=== PATIENT | female | born 1995 | race Asian ===

== ENCOUNTER 2024-11-20 16:33 | Inpatient (IN) | payer OTHER, SELFPAY ==
[2024-11-20] VITALS (14 sets, daily range): BP systolic 121–133; BP diastolic 87–100; PULSE 76–115; RESP 16–20; TEMP 36.3; O2SAT 96–100; BMI 38.4; BMI 39.1
--- NOTE | 2024-11-20 16:52 | ED_ITS ---
HPI - General Adult General Time Seen by Provider: 16:52 <Neelima Hernandez MD - Last Filed: 11/21/24 13:03> Date Seen: 11/20/24 <Neelima Hernandez MD - Last Filed: 11/21/24 13:03> Chief complaint: Back Injury/Pain <Neelima Hernandez MD - Last Filed: 11/21/24 13:03> Stated complaint: Lower back pain and dizziness <Neelima Hernandez MD - Last Filed: 11/21/24 13:03> Time Seen by Provider: 11/20/24 16:35 <Neelima Hernandez MD - Last Filed: 11/21/24 13:03> Source: patient and RN notes reviewed <Neelima Hernandez MD - Last Filed: 11/21/24 13:03> Mode of arrival: ambulatory <Neelima Hernandez MD - Last Filed: 11/21/24 13:03> Limitations: no limitations <Neelima Hernandez MD - Last Filed: 11/21/24 13:03> History of Present Illness HPI narrative: This 29-year-old female is coming in with lower abdominal pain and discomfort, somewhat around her periumbilical area as well. Wednesday through Wednesday of last week she had her menstrual cycle, she usually will have a lot of cramps and that is not atypical but the pain has continued. She does track her menstrual cycle, since coming off [employer], her cycles are usually about every 28 days and she will have her menstrual flow for about 3 days of this. She has felt hot and cold. She notes she has felt sweaty from her waist down at times. She normally will have stool production a couple times a day but it really is only went once today but denies constipation. She certainly is not had any diarrhea. She did eat a [employer] peanut butter cup earlier today around 10:00 a.m. but overall her appetite is diminished. She had some nausea today. She has tried Tylenol, ibuprofen and even tried some Midol. She has not had any prior abdominal surgery. She is noting urinary frequency without dysuria or hematuria, this is new for her. No history UTIs. She notes that right now she is feeling pain shooting into her rectum. She is not aware of any family history such as kidney stones or appendicitis. She herself has never had any kidney stones. No vaginal discharge. <Neelima Hernandez MD - Last Filed: 11/21/24 13:03> Related Data Home medications: Home Medications ?Medication ?Instructions ?Recorded ?Confirmed naltrexone 8 mg-bupropion 90 mg 1 tab PO BID 11/20/24 11/20/24 tablet,extended release (Contrave) <Neelima Hernandez MD - Last Filed: 11/21/24 13:03> Allergies/adverse reactions: Allergies Allergy/AdvReac Type Severity Reaction Status Date / Time No Known Drug Allergies Allergy Verified 11/20/24 16:49 <Neelima Hernandez MD - Last Filed: 11/21/24 13:03> Review of Systems Status of ROS: Reports: 6 or more systems reviewed and unremarkable except as noted in History and below <Neelima Hernandez MD - Last Filed: 13:03> [facility] Social History: Social History (Updated 11/20/24 @ 22:50 by Luciana Agudelo MD) Narrative: Works in a dental office What is your current living situation?: I presently have a place to live Problems where you live: no known problems Problems where you live details: none In the past 12 months, utilities in danger of being shut off: no In past 12 months, lack of transportation kept you from medical appts, meetings, work, or getting things needed for daily living: no In the past 12 mos, have been you worried that your food would run out before you had money to buy more?: never true In the past 12 mos, the food you bought just didn't last and you didn't have money to buy more?: never true Smoking Status: Never smoker How often do you have a drink containing alcohol: 2-3 times a week Alcohol type: beer and hard liquor Alcohol type details: tequila How many standard drinks containing alcohol do you have on a typical day: 1 or 2 How often do you have six or more drinks on one occasion: Less than monthly AUDIT-C Alcohol total score: 4 Non-prescribed substance use: marijuana (any form) Non-prescribed substance use details: 2/week Caffeine: Yes (soda, coffee) Are you now , , , , never or living with a partner: Social isolation score (0-1 are the most socially isolated patients): 1 How often does anyone, including family, friends and others, physically hurt you : never How often does anyone, including family, friends and others, insult or talk down to you: rarely How often does anyone, including family, friends and others, threaten you with harm: never How often does anyone, including family, friends and others, scream or curse at you: never service: No Health Related Social Needs: Other personal risk factors, not elsewhere classified (Z91.89) <Neelima Hernandez MD - Last Filed: 11/21/24 13:03> Exam Const: Vital Signs, click to edit/add: Vital Signs - 24 hr 11/20/24 16:41 11/20/24 17:37 11/20/24 17:40 Temperature 97.4 F L Pulse Rate 93 Pulse Rate [Pulse Oximeter] 106 H Respiratory Rate 20 16 Blood Pressure 127/88 Blood Pressure [Ri ght Upper Arm] 129/87 Pulse Oximetry 98 97 97 Oxygen Delivery Me thod Room Air Room Air 11/20/24 18:36 11/20/24 18:45 11/20/24 19:00 Temperature Pulse Rate 76 79 76 Pulse Rate [Pulse Oximeter] Respiratory Rate Blood Pressure Blood Pressure [Ri ght Upper Arm] Pulse Oximetry 96 97 98 Oxygen Delivery Nj thod 11/20/24 19:15 11/20/24 20:04 11/20/24 20:15 Temperature Pulse Rate 95 97 90 Pulse Rate [Pulse Oximeter] Respiratory Rate Blood Pressure Blood Pressure [Ri ght Upper Arm] Pulse Oximetry 100 97 98 Oxygen Delivery Me thod 11/20/24 20:28 11/20/24 20:29 11/20/24 20:30 Temperature Pulse Rate 93 92 88 Pulse Rate [Pulse Oximeter] Respiratory Rate 16 Blood Pressure 121/87 132/100 H Blood Pressure [Ri ght Upper Arm] Pulse Oximetry 98 98 96 Oxygen Delivery Me thod Room Air 11/20/24 20:31 Temperature Pulse Rate Pulse Rate [Pulse Oximeter] Respiratory Rate Blood Pressure 121/87 Blood Pressure [Ri ght Upper Arm] Pulse Oximetry Oxygen Delivery Me thod This 29-year-old female is seen in exam room for, she is alert, interactive, no apparent distress. Sclera clear, conjugate gaze, smiling and very pleasant. If speak in complete sentences, voice normal. Lungs clear come good air entry, no wheezing crackles. CV regular rate and rhythm, no murmur, normal S1-S2, no S3- S4. She has some mild inferior periumbilical pain going down into the suprapubic area generally. No rebound or guarding, no organomegaly but body habitus does preclude good examination. Bowel sounds are faint and scares but do not feel bloating of her abdomen. Skin visualized without any rash, no lower extremity edema. Pelvic exam deferred at this point. <Neelima Hernandez MD - Last Filed: 11/21/24 13:03> Vital Signs, click to edit/add: Vital Signs - 24 hr 11/20/24 16:41 11/20/24 17:37 11/20/24 17:40 Temperature 97.4 F L Pulse Rate 93 Pulse Rate [Pulse Oximeter] 106 H Respiratory Rate 20 16 Blood Pressure 127/88 Blood Pressure [Ri ght Upper Arm] 129/87 Pulse Oximetry 98 97 97 Oxygen Delivery Me thod Room Air Room Air 11/20/24 18:36 11/20/24 18:45 11/20/24 19:00 Temperature Pulse Rate 76 79 76 Pulse Rate [Pulse Oximeter] Respiratory Rate Blood Pressure Blood Pressure [Ri ght Upper Arm] Pulse Oximetry 96 97 98 Oxygen Delivery Me thod 11/20/24 19:15 11/20/24 20:04 11/20/24 20:15 Temperature Pulse Rate 95 97 90 Pulse Rate [Pulse Oximeter] Respiratory Rate Blood Pressure Blood Pressure [Ri ght Upper Arm] Pulse Oximetry 100 97 98 Oxygen Delivery Me thod 11/20/24 20:28 11/20/24 20:29 11/20/24 20:30 Temperature Pulse Rate 93 92 88 Pulse Rate [Pulse Oximeter] Respiratory Rate 16 Blood Pressure 121/87 132/100 H Blood Pressure [Ri ght Upper Arm] Pulse Oximetry 98 98 96 Oxygen Delivery Me thod Room Air 11/20/24 20:31 Temperature Pulse Rate Pulse Rate [Pulse Oximeter] Respiratory Rate Blood Pressure 121/87 Blood Pressure [Ri ght Upper Arm] Pulse Oximetry Oxygen Delivery Me thod <Betty Jay MD - Last Filed: 11/21/24 23:59> Documenting provider has reviewed patient's vital signs: yes <Neelima Hernandez MD - Last Filed: 11/21/24 13:03> Course Course ED Course: Differential is broad and could be gastrointestinal such as constipation, other bowel etiologies. Could be even appendicitis, possible urinary with infection and kidney stones not ruled out. Clinically she does not seem like she has a surgical abdomen but will do CT imaging to rule this out. Will consider female your genital etiologies as well. May need to consider ultrasound if there is anything concerning on the CT. Will confirm negative test, if test is positive certainly could be something along the lines of ectopic . Will give her Toradol and Zofran given that she just had a menstrual cycle that was normal for her. Makes this much less likely to be anything related to . Nursing staff did do an EKG on arrival as she was complaining of feeling lightheaded with her symptoms. The EKG is reassuring. <Neelima Hernandez MD - Last Filed: 11/21/24 13:03> Reevaluation(s) Time of Reevaluation #1: 18:59 <Neelima Hernandez MD - Last Filed: 11/21/24 13:03> Reevaluation #1: Reviewed with patient her CT finding of possible hydrosalpinx coming off the left ovary. She does not believe she has ever had a sexually transmitted infection and is not outwardly symptomatic at this time. Will have her collect a dirty urine for GC and chlamydia testing. Pelvic ultrasound has been ordered. She is feeling better after Toradol and Zofran. <Neelima Hernandez MD - Last Filed: 11/21/24 13:03> Additional Reevaluation(s): Ultrasound report added to this note next day. I understand patient was admitted by Dr. Agudelo. Care was turned over to ED partner on my leaving yesterday. <Neelima Hernandez MD - Last Filed: 11/21/24 13:03> Consultations Consultation #1: Did update OB Gyne on-call Dr. Agudelo. Tubo-ovarian abscess is in the differential as well. Reviewed with her that this patient really clinically does not have an acute surgical abdomen on presentation but white blood count an C reactive protein are elevated. Will await the ultrasound report. We are also going to have her collect a dirty UA to confirm negative STD testing with chlamydia and gonorrhea. <Neelima Hernanedz MD - Last Filed: 11/21/24 13:03> Time: 19:07 <Neelima Hernandez MD - Last Filed: 11/21/24 13:03> Consultation #2: Update: Dr. Jay- ultrasound findings reviewed. Discussed with Dr. Longo, will admit for IV antibiotics and continued management per her recommendation. Starting Rocephin, metronidazole and doxycycline. <Betty Jay MD - Last Filed: 11/21/24 23:59> Vital Signs Vital signs: Initial Vital Signs Temperature 97.4 F L 11/20/24 16:41 Temperature Source Temporal Artery Scan 11/20/24 16:41 Pulse Rate 106 H 11/20/24 16:41 Pulse Rhythm Irregular 11/20/24 16:41 Respiratory Rate 20 11/20/24 16:41 Blood Pressure 129/87 11/20/24 16:41 Blood Pressure Mean 101 11/20/24 16:41 Blood Pressure Position Sitting 11/20/24 16:41 Pulse Oximetry 98 11/20/24 16:41 Oxygen Delivery Method Room Air 11/20/24 16:41 Vital Signs Temperature 97.4 F L 11/20/24 16:41 Pulse Rate 106 H 11/20/24 16:41 Respiratory Rate 20 11/20/24 16:41 Blood Pressure 129/87 11/20/24 16:41 Pulse Oximetry 98 11/20/24 16:41 Oxygen Delivery Method Room Air 11/20/24 16:41 Temperature 98.2 F 11/21/24 15:00 Pulse Rate 91 11/21/24 21:12 Respiratory Rate 16 11/21/24 21:12 Blood Pressure 138/99 H 11/21/24 21:12 Pulse Oximetry 99 11/21/24 21:12 Oxygen Delivery Method Room Air 11/21/24 21:12 <Neelima Hernandez MD - Last Filed: 11/21/24 13:03> Initial Vital Signs Temperature 97.4 F L 11/20/24 16:41 Temperature Source Temporal Artery Scan 11/20/24 16:41 Pulse Rate 106 H 11/20/24 16:41 Pulse Rhythm Irregular 11/20/24 16:41 Respiratory Rate 20 11/20/24 16:41 Blood Pressure 129/87 11/20/24 16:41 Blood Pressure Mean 101 11/20/24 16:41 Blood Pressure Position Sitting 11/20/24 16:41 Pulse Oximetry 98 11/20/24 16:41 Oxygen Delivery Method Room Air 11/20/24 16:41 Vital Signs Temperature 97.4 F L 11/20/24 16:41 Pulse Rate 106 H 11/20/24 16:41 Respiratory Rate 20 11/20/24 16:41 Blood Pressure 129/87 11/20/24 16:41 Pulse Oximetry 98 11/20/24 16:41 Oxygen Delivery Method Room Air 11/20/24 16:41 Temperature 98.2 F 11/21/24 15:00 Pulse Rate 91 11/21/24 21:12 Respiratory Rate 16 11/21/24 21:12 Blood Pressure 138/99 H 11/21/24 21:12 Pulse Oximetry 99 11/21/24 21:12 Oxygen Delivery Method Room Air 11/21/24 21:12 <Betty Jay MD - Last Filed: 11/21/24 23:59> Medications Administered Medications: Generic Name Dose Route Start Last Admin Trade Name Freq PRN Reason Stop Dose Admin Acetaminophen 1,000 mg 11/20/24 21:23 11/21/24 13:30 Acetaminophen 500 Mg Tablet PO 1,000 mg Q6H PRN Administration Ceftriaxone Sodium 1 gm/ 100 mls @ 200 mls/hr 11/20/24 21:30 11/21/24 23:19 Sodium Chloride IVPB 200 mls/hr Q24H DOMONIQUE Administration Metronidazole 500 mg in 100 mls @ 100 mls/hr 11/20/24 21:25 11/21/24 22:38 Metronidazole IVPB Infused Q8H DOMONIQUE Infusion Doxycycline Hyclate 100 mg/ 100 mls @ 100 mls/hr 11/20/24 21:30 11/21/24 22:21 Sodium Chloride IVPB 200 mls/hr Q12H DOMONIQUE Administration Ketorolac Tromethamine 15 mg 11/20/24 21:23 11/21/24 13:31 Ketorolac 15 Mg/Ml Inj IVP 15 mg Q6H PRN Administration Non-Formulary Medication 1 tab 11/21/24 09:00 11/21/24 22:08 Naltrexone-Bupropion [Contrave] PO 1 tab BID DOMONIQUE Administration Ondansetron HCl 4 mg 11/20/24 21:23 11/21/24 21:17 Ondansetron 2 Mg/Ml Inj IVP 4 mg Q4H PRN Administration Nausea Sodium Chloride 250 ml 11/20/24 22:04 11/21/24 10:00 0.9 % Sodium Chloride 250 Ml IV 250 ml Q24H PRN Administration iv abx Sodium Chloride 5 ml 11/20/24 23:44 11/21/24 05:35 Sodium Chloride 0.9 % (Flush) 10 Ml Syringe IVF 5 ml .FLUSH PRN Administration Sodium Chloride 5 ml 11/21/24 09:00 11/21/24 21:18 Sodium Chloride 0.9 % (Flush) 10 Ml Syringe IVF 5 ml BID DOMONIQUE Administration Sodium Chloride 250 ml 11/21/24 09:45 11/21/24 19:36 0.9 % Sodium Chloride 250 Ml IV Not Given Q24H DOMONIQUE Discontinued Medications Generic Name Dose Route Start Last Admin Trade Name Freq PRN Reason Stop Dose Admin Ketorolac Tromethamine 15 mg 11/20/24 17:34 11/20/24 17:43 Ketorolac 15 Mg/Ml Inj IVP 11/20/24 17:35 15 mg ONCE ONE Administration Ondansetron HCl 4 mg 11/20/24 17:34 11/20/24 17:43 Ondansetron 2 Mg/Ml Inj IVP 11/20/24 17:35 4 mg ONCE ONE Administration <Neelima Hernandez MD - Last Filed: 11/21/24 13:03> Generic Name Dose Route Start Last Admin Trade Name Freq PRN Reason Stop Dose Admin Acetaminophen 1,000 mg 11/20/24 21:23 11/21/24 13:30 Acetaminophen 500 Mg Tablet PO 1,000 mg Q6H PRN Administration Ceftriaxone Sodium 1 gm/ 100 mls @ 200 mls/hr 05/19/25 21:30 11/21/24 23:19 Sodium Chloride IVPB 200 mls/hr Q24H DOMONIQUE Administration Metronidazole 500 mg in 100 mls @ 100 mls/hr 11/20/24 21:25 11/21/24 22:38 Metronidazole IVPB Infused Q8H DOMONIQUE Infusion Doxycycline Hyclate 100 mg/ 100 mls @ 100 mls/hr 11/20/24 21:30 11/21/24 22:21 Sodium Chloride IVPB 200 mls/hr Q12H DOMONIQUE Administration Ketorolac Tromethamine 15 mg 11/20/24 21:23 11/21/24 13:31 Ketorolac 15 Mg/Ml Inj IVP 15 mg Q6H PRN Administration Non-Formulary Medication 1 tab 11/21/24 09:00 11/21/24 22:08 Naltrexone-Bupropion [Contrave] PO 1 tab BID DOMONIQUE Administration Ondansetron HCl 4 mg 11/20/24 21:23 11/21/24 21:17 Ondansetron 2 Mg/Ml Inj IVP 4 mg Q4H PRN Administration Nausea Sodium Chloride 250 ml 11/20/24 22:04 11/21/24 10:00 0.9 % Sodium Chloride 250 Ml IV 250 ml Q24H PRN Administration iv abx Sodium Chloride 5 ml 11/20/24 23:44 11/21/24 05:35 Sodium Chloride 0.9 % (Flush) 10 Ml Syringe IVF 5 ml .FLUSH PRN Administration Sodium Chloride 5 ml 11/21/24 09:00 11/21/24 21:18 Sodium Chloride 0.9 % (Flush) 10 Ml Syringe IVF 5 ml BID DOMONIQUE Administration Sodium Chloride 250 ml 11/21/24 09:45 11/21/24 19:36 0.9 % Sodium Chloride 250 Ml IV Not Given Q24H DOMONIQUE Discontinued Medications Generic Name Dose Route Start Last Admin Trade Name Freq PRN Reason Stop Dose Admin Ketorolac Tromethamine 15 mg 11/20/24 17:34 11/20/24 17:43 Ketorolac 15 Mg/Ml Inj IVP 11/20/24 17:35 15 mg ONCE ONE Administration Ondansetron HCl 4 mg 11/20/24 17:34 11/20/24 17:43 Ondansetron 2 Mg/Ml Inj IVP 11/20/24 17:35 4 mg ONCE ONE Administration <Betty Jay MD - Last Filed: 11/21/24 23:59> Medical Decision Making Lab Data Lab results reviewed: Yes I reviewed the patient's lab results <Neelima Hernandez MD - Last Filed: 11/21/24 13:03> Labs: Lab Results 11/20/24 11/20/24 Range/Units 17:20 19:35 WBC 12.53 H (4.50-11.00) K/uL RBC 4.01 (4.00-5.20) m/uL Hgb 12.2 (12.0-16.0) gm/dL Hct 37.6 (33.0-51.0) % MCV 94 (80-100) fL MCH 30 (26-34) pg MCHC 32 (32-36) gm/dL RDW Coeff of Paty 11.7 (11.5-15.5) % Plt Count 442 H (140-440) K/uL Neut % (Auto) 73.1 H (42.0-72.0) % Lymph % (Auto) 19.1 L (20-44) % [place] % (Auto) 6.8 (0.0-11.0) % Eos % (Auto) 0.6 (0.0-7.0) % Baso % (Auto) 0.2 (0.0-3.0) % Neut # (Auto) 9.20 H (1.7-7.0) K/uL Lymph # (Auto) 2.40 (0.90-2.90) K/uL [place] # (Auto) 0.90 (0.00-0.90) K/UL Eos # (Auto) 0.10 (0.00-0.50) K/uL Baso # (Auto) 0.00 (0.00-0.30) K/uL Abs Immat Gran (auto) 0.00 (0.00-0.30) K/uL Imm/Tot Granulo (auto) 0.2 % Sodium 142 (135-149) mmol/L Potassium 3.7 (3.6-5.1) mmol/L Chloride 106 (96-114) mmol/L Carbon Dioxide 27 (20-32) mmol/L Anion Gap 9 (7-15) mEq/L BUN 9 (5-24) mg/dL Creatinine 0.7 (0.5-1.5) mg/dL Estimated Creat Clear 95.48 Estimated GFR 121 ml/min Glucose 95 (60-115) mg/dL Lactate 1.2 (0.5-1.9) mmol/L Calcium 9.6 (8.4-10.6) mg/dL Total Bilirubin 0.7 (0.1-1.5) mg/dL AST 19 (12-35) U/L ALT 19 (4-35) U/L Alkaline Phosphatase 73 (40-150) U/L C-Reactive Protein 12.6 H (0.5-1.0) mg/dL Total Protein 7.8 (6.0-8.3) g/dL Albumin 4.4 (3.3-5.0) g/dL C.trachomatis Ampl DNA NOT DETECTED (No Detected) N.gonorrhoeae Ampl DNA NOT DETECTED (No Detected) <Neelima Hernandez MD - Last Filed: 11/21/24 13:03> Lab Results 11/20/24 11/20/24 Range/Units 17:20 19:35 WBC 12.53 H (4.50-11.00) K/uL RBC 4.01 (4.00-5.20) m/uL Hgb 12.2 (12.0-16.0) gm/dL Hct 37.6 (33.0-51.0) % MCV 94 (80-100) fL MCH 30 (26-34) pg MCHC 32 (32-36) gm/dL RDW Coeff of Paty 11.7 (11.5-15.5) % Plt Count 442 H (140-440) K/uL Neut % (Auto) 73.1 H (42.0-72.0) % Lymph % (Auto) 19.1 L (20-44) % [place] % (Auto) 6.8 (0.0-11.0) % Eos % (Auto) 0.6 (0.0-7.0) % Baso % (Auto) 0.2 (0.0-3.0) % Neut # (Auto) 9.20 H (1.7-7.0) K/uL Lymph # (Auto) 2.40 (0.90-2.90) K/uL [place] # (Auto) 0.90 (0.00-0.90) K/UL Eos # (Auto) 0.10 (0.00-0.50) K/uL Baso # (Auto) 0.00 (0.00-0.30) K/uL Abs Immat Gran (auto) 0.00 (0.00-0.30) K/uL Imm/Tot Granulo (auto) 0.2 % Sodium 142 (135-149) mmol/L Potassium 3.7 (3.6-5.1) mmol/L Chloride 106 (96-114) mmol/L Carbon Dioxide 27 (20-32) mmol/L Anion Gap 9 (7-15) mEq/L BUN 9 (5-24) mg/dL Creatinine 0.7 (0.5-1.5) mg/dL Estimated Creat Clear 95.48 Estimated GFR 121 ml/min Glucose 95 (60-115) mg/dL Lactate 1.2 (0.5-1.9) mmol/L Calcium 9.6 (8.4-10.6) mg/dL Total Bilirubin 0.7 (0.1-1.5) mg/dL AST 19 (12-35) U/L ALT 19 (4-35) U/L Alkaline Phosphatase 73 (40-150) U/L C-Reactive Protein 12.6 H (0.5-1.0) mg/dL Total Protein 7.8 (6.0-8.3) g/dL Albumin 4.4 (3.3-5.0) g/dL C.trachomatis Ampl DNA NOT DETECTED (No Detected) N.gonorrhoeae Ampl DNA NOT DETECTED (No Detected) <Betty Jay MD - Last Filed: 11/21/24 23:59> Imaging Data CT scan - abdomen: Attestation: I have reviewed the pertinent imaging results. <Neelima Lloyd MD - Last Filed: 11/21/24 13:03> My impression: Did visualize the CT and see an abnormal fluid-filled structure potentially coming off the adnexa, definitely will be awaiting Radiology over- read. <Neelima Hernandez MD - Last Filed: 11/21/24 13:03> Radiologist's impression: Patient: JOHN VACA Facility:?[facility] Patient ID:?[id number] Site Patient ID:?[id number]. Site :?[id number] Study:?CT-Abdomen/Pelvis 103CC ISOVUE 370-11/20/2024 6:14:12 PM Ordering Physician:Dick Ortez Final Report: INDICATION: Lower abdominal pain, nausea vomiting. TECHNIQUE: CT abdomen and pelvis acquired with 103 cc Isovue 370 IV contrast. COMPARISON: None. FINDINGS: Lower chest: Unremarkable. Liver: Unremarkable. Normal in size and attenuation. No suspicious masses. Gallbladder and bile ducts: Unremarkable. No stones or inflammation. No biliary dilatation. Pancreas: Unremarkable. No mass or inflammation. Spleen: Unremarkable. Normal in size. No masses. Adrenal glands: Unremarkable. No nodules. Kidneys: Unremarkable. No suspicious masses, stones, or hydronephrosis. GI tract: Unremarkable. Normal in caliber. No sign of mass or inflammation. Normal appendix (2/81). Vasculature: Abdominal aorta is normal in caliber. Mesenteric arteries are patent. Lymph nodes: No pathologic lymphadenopathy. Peritoneum/Abdominal Wall: Unremarkable. No sign of mass or infiltration. No free air or significant free fluid. Pelvis: Bladder is partially decompressed. Dilated fluid-filled left adnexal tubular structure measuring up to 6.6 cm (2/119). Bones: Unremarkable for age. IMPRESSION: Dilated fluid-filled left adnexal tubular structure measuring up to 6.6 cm that may represent hydrosalpinx. More detailed evaluation with pelvic ultrasound could be considered. Normal appendix. Please note that all CT scans at this facility use dose modulation, iterative reconstruction, and/or weight-based dosing when appropriate to reduce radiation dose to as low as reasonably achievable. Dictated by Vishnu Kaye MD @ 11/20/2024 6:47:29 PM (Electronic Signature) <Neelima Hernandez MD - Last Filed: 11/21/24 13:03> US pelvis: Attestation: I have reviewed the pertinent imaging results. <Neelima Hernandez MD - Last Filed: 11/21/24 13:03> Radiologist's impression: Patient: JOHN VACA Facility:?[facility] Patient ID:?[id number] Site Patient ID:?[id number]. Site :?1995 Study:?US-Pelvis PELVIS TV-11/20/2024 8:09:37 PM Ordering Physician:Dick Ortez Final Report: INDICATION: Abnormal CT, possible hydrosalpinx. TECHNIQUE: Ultrasound pelvis transvaginal for better assessment or to better visualize the endometrium. Real-time sonographic images with spectral and color Doppler imaging of the ovaries were obtained. COMPARISON: CT abdomen and pelvis from same day. FINDINGS: Uterus: 8.5 x 3.4 x 5.9 cm. Normal echotexture of the myometrium. No masses. Endometrium: Transvaginal imaging was performed to better evaluate the endometrium. Endometrial thickness measures 2 mm. No sign of endometrial mass or fluid. Right ovary measures 2.6 x 1.7 x 2.2 cm. Left ovary is not visualized. There is a 7.3 x 6.7 x 7.2 cm complex cystic lesion in the left adnexa without internal vascular flow or mural nodularity. The lesion may be multi-cystic or septated. In addition, the cystic structure may displace/compress the left ovary. Normal arterial and venous blood flow is demonstrated in the right ovary. Cul-de-sac: No significant free fluid. IMPRESSION: 1. 7.3 x 6.7 x 7.2 cm complex cystic lesion in the left adnexa without internal vascular flow. The lesion may be multi-cystic or septated, which could indicate hydrosalpinx; however, a hemorrhagic cyst, and less likely a cystic ovarian neoplasm, are also considerations. Recommend follow-up pelvic ultrasound in 8-12 weeks or pelvic MRI for further evaluation. The left ovary is not identified, possibly secondary to displacement or compression by the cystic lesion. 2. Otherwise, unremarkable pelvic ultrasound. Dictated by Cleveland Oviedo MD @ 11/20/2024 9:00:36 PM (Electronic Signature) <Neelima Hernandez MD - Last Filed: 11/21/24 13:03> ECG Data Attestation: I personally reviewed and interpreted this ECG as follows: (Sinus rhythm with sinus arrhythmia, 89 beats per minute. Poor R-wave progression anterior precordial leads without any active concerning ST or T-wave changes.) <Neelima Hernandez MD - Last Filed: 11/21/24 13:03> Prior ECG tracings: not available for review <Neelima Hernandez MD - Last Filed: 11/21/24 13:03> Discharge Plan Discharge Clinical Impression: Pelvic pain, Adnexal cyst <Neelima Hernandez MD - Last Filed: 11/21/24 13:03> Patient Disposition: Admitted As Observation <Neelima Hernandez MD - Last Filed: 11/21/24 13:03>
--- NOTE | 2024-11-20 17:05 | CRLHL7_ITS ---
For Patients: As a result of the Century Cures Act, medical imaging exams and procedure reports are released immediately into your electronic medical record. You may view this report before your referring provider. If you have questions, please contact your health care provider. INDICATION: Lower abdominal pain, nausea vomiting. TECHNIQUE: CT abdomen and pelvis acquired with 103 cc Isovue 370 IV contrast. COMPARISON: None. FINDINGS: Lower chest: Unremarkable. Liver: Unremarkable. Normal in size and attenuation. No suspicious masses. Gallbladder and bile ducts: Unremarkable. No stones or inflammation. No biliary dilatation. Pancreas: Unremarkable. No mass or inflammation. Spleen: Unremarkable. Normal in size. No masses. Adrenal glands: Unremarkable. No nodules. Kidneys: Unremarkable. No suspicious masses, stones, or hydronephrosis. GI tract: Unremarkable. Normal in caliber. No sign of mass or inflammation. Normal appendix (2/81). Vasculature: Abdominal aorta is normal in caliber. Mesenteric arteries are patent. Lymph nodes: No pathologic lymphadenopathy. Peritoneum/Abdominal Wall: Unremarkable. No sign of mass or infiltration. No free air or significant free fluid. Pelvis: Bladder is partially decompressed. Dilated fluid-filled left adnexal tubular structure measuring up to 6.6 cm (2/119). Bones: Unremarkable for age. IMPRESSION: Dilated fluid-filled left adnexal tubular structure measuring up to 6.6 cm that may represent hydrosalpinx. More detailed evaluation with pelvic ultrasound could be considered. Normal appendix. Please note that all CT scans at this facility use dose modulation, iterative reconstruction, and/or weight-based dosing when appropriate to reduce radiation dose to as low as reasonably achievable. Dictated by Vishnu Kaye MD @ 11/20/2024 6:47:29 PM (Electronically Signed)
[2024-11-20 17:24] LABS: Lactate* 1.2 mmol/L (0.5-1.9)
[2024-11-20 17:25] LABS: Basophils Percent Auto 0.2 % (0.0-3.0); Eosinophils Percent Auto 0.6 % (0.0-7.0); Hematocrit 37.6 % (33.0-51.0); Hemoglobin* 12.2 gm/dL (12.0-16.0); Immature Granulocytes Pct Auto 0.2 %; Lymphocytes Percent Auto 19.1 % (20-44); Mean Corpuscular HGB Conc 32 gm/dL (32-36); Mean Corpuscular Hemoglobin 30 pg (26-34); Mean Corpuscular Volume 94 fL (80-100); Monocytes Percent Auto 6.8 % (0.0-11.0); Neutrophils Percent Auto 73.1 % (42.0-72.0); Platelet Count* 442 K/uL (140-440); RDW Coefficient of Variation % 11.7 % (11.5-15.5); Red Blood Count 4.01 m/uL (4.00-5.20); White Blood Count* 12.53 K/uL (4.50-11.00)
[2024-11-20 17:31] LABS: Slide Review Reflex No
[2024-11-20 17:38] LABS: Appearance Urine Clear (Clear); Bilirubin Urine Negative (Negative); Blood Urine Trace-intact (Negative); Color Urine Yellow (Yellow); Glucose Urine Negative (Negative); Ketones Urine 2+ (Negative); Leukocyte Esterase Urine 2+ (Negative); Nitrite Urine Negative (Negative); Protein Urine 1+ (Negative)
[2024-11-20 17:39] LABS: Ur HCG Qualitative* Negative (Negative)
[2024-11-20] MEDS: ONDANSETRON 2 MG/ML inj 4 MG IVP (17:43)
[2024-11-20] MEDS: KETOROLAC 15 MG/ML inj IVP ×2 (17:43→23:44)
[2024-11-20 17:46] LABS: Albumin* 4.4 g/dL (3.3-5.0); Chloride* 106 mmol/L (96-114); Potassium* 3.7 mmol/L (3.6-5.1); Sodium* 142 mmol/L (135-149)
[2024-11-20 17:48] LABS: Blood Urea Nitrogen* 9 mg/dL (5-24); Creatinine* 0.7 mg/dL (0.5-1.5); Est. Creatinine Clearance* 95.48; Estimated Glomerular Filt Rate 121 ml/min
[2024-11-20 17:49] LABS: Alanine Aminotransferase* 19 U/L (4-35); Alkaline Phosphatase* 73 U/L (40-150); Anion Gap 9 mEq/L (7-15); Aspartate Amino Transferase* 19 U/L (12-35); Bilirubin Total* 0.7 mg/dL (0.1-1.5); Calcium* 9.6 mg/dL (8.4-10.6); Carbon Dioxide* 27 mmol/L (20-32); Glucose* 95 mg/dL (60-115); Total Protein* 7.8 g/dL (6.0-8.3)
[2024-11-20 17:50] LABS: Bacteria Urine Few; Squamous Epithelial Cell Urine Few (None-Few)
[2024-11-20 18:26] LABS: C Reactive Protein* 12.6 mg/dL (0.5-1.0)
--- NOTE | 2024-11-20 18:56 | CRLHL7_ITS ---
For Patients: As a result of the Century Cures Act, medical imaging exams and procedure reports are released immediately into your electronic medical record. You may view this report before your referring provider. If you have questions, please contact your health care provider. INDICATION: Abnormal CT, possible hydrosalpinx. TECHNIQUE: Ultrasound pelvis transvaginal for better assessment or to better visualize the endometrium. Real-time sonographic images with spectral and color Doppler imaging of the ovaries were obtained. COMPARISON: CT abdomen and pelvis from same day. FINDINGS: Uterus: 8.5 x 3.4 x 5.9 cm. Normal echotexture of the myometrium. No masses. Endometrium: Transvaginal imaging was performed to better evaluate the endometrium. Endometrial thickness measures 2 mm. No sign of endometrial mass or fluid. Right ovary measures 2.6 x 1.7 x 2.2 cm. Left ovary is not visualized. There is a 7.3 x 6.7 x 7.2 cm complex cystic lesion in the left adnexa without internal vascular flow or mural nodularity. The lesion may be multi-cystic or septated. In addition, the cystic structure may displace/compress the left ovary. Normal arterial and venous blood flow is demonstrated in the right ovary. Cul-de-sac: No significant free fluid. IMPRESSION: 1. 7.3 x 6.7 x 7.2 cm complex cystic lesion in the left adnexa without internal vascular flow. The lesion may be multi-cystic or septated, which could indicate hydrosalpinx; however, a hemorrhagic cyst, and less likely a cystic ovarian neoplasm, are also considerations. Recommend follow-up pelvic ultrasound in 8-12 weeks or pelvic MRI for further evaluation. The left ovary is not identified, possibly secondary to displacement or compression by the cystic lesion. 2. Otherwise, unremarkable pelvic ultrasound. Dictated by Cleveland Oviedo MD @ 11/20/2024 9:00:36 PM (Electronically Signed)
[2024-11-20 21:20] LABS: Chlamydia DNA Amplified* NOT DETECTED (No Detected); GC DNA Amplified* NOT DETECTED (No Detected)
[2024-11-20] MEDS: metroNIDAZOLE 500 MG/100 ML PIGGYBACK 100 MG IVPB (22:06)
--- NOTE | 2024-11-20 22:42 | PM.GYNHPNOR ---
TALENT SOLUTIONS MANAGER - H&P:HPI Medical History of Present Illness Time Seen by Provider: 22:20 Date Seen: 11/20/24 Reason for admission: pelvic pain and pelvic mass (7 cm complex left adnexal mass, ? TOA vs. Hemorrhagic cyst, with elevated WBC and CRP) Narrative: Gabbi Ferguson is a 29 year old female who presented to the emergency department this evening complaining of moderately severe lower abdominal pain. She states that last menstrual period began on 11/16/2024. As usual, the menses were accompanied by moderately severe cramping pain. The bleeding lasted three days, and when it resolved, the pain continued. The pain is mostly located in the low abdomen, but she states that at times it was near her umbilicus, and she has experienced some shooting pain into the rectum as well. She has felt alternatingly hot and cold, but took her temperature and did not have a fever. She is also at times felt sweaty and she has had a decreased appetite. She denies dysuria or urinary urgency, but she has had some urinary frequency. She denies constipation or diarrhea. No known history of kidney stones or pyelonephritis. The emergency department today, she was initially tachycardic, with a pulse of 106. White blood cell count was noted to be elevated at 12.53, and the differential showed a left shift. CRP was elevated at 12.6. Urinalysis was positive for 2+ leukocyte esterase, 2-5 red blood cells, and 10-[address] scan of the abdomen and pelvis was negative for kidney stones. A dilated fluid-filled left adnexal tubular structure was visualized measuring 6.6 cm. A pelvic ultrasound was performed which demonstrated a normal uterus, normal right ovary, and a complex left adnexal cystic structure filling the posterior cul-de-sac, measuring 7.3 x 6.7 x 7.2 cm. The left ovary was nonvisualized. OBSTETRIC HISTORY: The patient had a vaginal delivery at age 19, and give the baby up for adoption. GYNECOLOGIC HISTORY: Cis gender female. Sexually active: Yes. One male partner. Contraception: None. Denies history of sexually transmitted infections or pelvic inflammatory disease. LMP: 11/16/2024. Reports regular monthly menses. Usual length of flow: Three days. Review of Systems Status of ROS: Reports: 10 or more systems reviewed and unremarkable except as noted in History and below Meds Home Medications and Allergies Home Medications ?Medication ?Instructions ?Recorded ?Confirmed ?Type naltrexone 8 mg-bupropion 90 mg 1 tab PO BID 11/20/24 11/20/24 History tablet,extended release (Contrave) Allergies Allergy/AdvReac Type Severity Reaction Status Date / Time No Known Drug Allergies Allergy Verified 11/20/24 16:49 PFSH Active Problems (Updated 11/20/24 @ 22:55 by Luciana Agudelo MD) UTI (urinary tract infection) (Acute) ?N39.0 - Urinary tract infection, site not specified (ICD-10) Pelvic pain (Acute) ?R10.2 - Pelvic and perineal pain (ICD-10) Adnexal cyst (Acute) ?N94.9 - Unspecified condition associated with female genital organs and menstrual cycle (ICD-10) Class 2 obesity with body mass index (BMI) of 38.0 to 38.9 in adult (Acute) ?E66.812 - Obesity, class 2 (ICD-10) ?Z68.38 - Body mass index [BMI] 38.0-38.9, adult (ICD-10) Social History (Updated 11/20/24 @ 22:50 by Luciana Agudelo MD) Narrative: Works in a dental office What is your current living situation?: I presently have a place to live Problems where you live: no known problems Problems where you live details: none In the past 12 months, utilities in danger of being shut off: no In past 12 months, lack of transportation kept you from medical appts, meetings, work, or getting things needed for daily living: no In the past 12 mos, have been you worried that your food would run out before you had money to buy more?: never true In the past 12 mos, the food you bought just didn't last and you didn't have money to buy more?: never true Smoking Status: Never smoker How often do you have a drink containing alcohol: 2-3 times a week Alcohol type: beer and hard liquor Alcohol type details: tequila How many standard drinks containing alcohol do you have on a typical day: 1 or 2 How often do you have six or more drinks on one occasion: Less than monthly AUDIT-C Alcohol total score: 4 Non-prescribed substance use: marijuana (any form) Non-prescribed substance use details: 2/week Caffeine: Yes (soda, coffee) Are you now , , , , never or living with a partner: Social isolation score (0-1 are the most socially isolated patients): 1 How often does anyone, including family, friends and others, physically hurt you: never How often does anyone, including family, friends and others, insult or talk down to you: rarely How often does anyone, including family, friends and others, threaten you with harm: never How often does anyone, including family, friends and others, scream or curse at you: never service: No Health Related Social Needs: Other personal risk factors, not elsewhere classified (Z91.89) Reproductive Health History : 1 Para: 1 TALENT SOLUTIONS MANAGER - Exam Physical Exam: Vital signs: Temp Pulse Resp BP Pulse Ox O2 Del Method 97.4 F L 88 16 121/87 96 Room Air 11/20/24 16:41 11/20/24 20:30 11/20/24 20:28 11/20/24 20:31 11/20/24 20:30 11/20/24 20:28 Constitutional: Constitutional: no acute distress and obese Routine HEENT Exam: Head: Present normal inspection Routine Neck Exam: NECK: Present supple Routine Respiratory Exam: Respiratory: Present CTA bilaterally; Absent crackles, rales, rhonchi or wheezes Routine Cardiovascular Exam: Cardiovascular: Present RRR; Absent murmur Routine Abdominal Exam: Abdominal: Present soft; Absent mass or tenderness Routine Exam: Comments: Exam deferred this evening. Routine Extremities Exam: Extremities: Present normal inspection; Absent tenderness TALENT SOLUTIONS MANAGER - Results Labs Labs: Short CBC 11/20/24 Range/Units 17:20 WBC 12.53 H (4.50-11.00) K/uL Hgb 12.2 (12.0-16.0) gm/dL Hct 37.6 (33.0-51.0) % Plt Count 442 H (140-440) K/uL BMP 11/20/24 17:20 Sodium 142 Potassium 3.7 Chloride 106 Carbon Dioxide 27 BUN 9 Creatinine 0.7 Glucose 95 Calcium 9.6 Liver Function 11/20/24 Range/Units 17:20 Total Bilirubin 0.7 (0.1-1.5) mg/dL AST 19 (12-35) U/L ALT 19 (4-35) U/L Alkaline Phosphatase 73 (40-150) U/L Albumin 4.4 (3.3-5.0) g/dL Urine 11/20/24 Range/Units Unknown Urine Color Yellow (Yellow) Urine Appearance Clear (Clear) Urine pH 6.0 (5.0-8.5) Ur Specific [place] 1.020 (1.000-1.030) Urine Protein 1+ A (Negative) Urine Glucose (UA) Negative (Negative) Imaging Results Imaging: CT scan abdomen and pelvis images and report reviewed. I concur with the findings. Ultrasound pelvis images and report reviewed. I concur with the findings. Assessment and Plan Assessment and plan (1) Adnexal cyst: Status: Acute (2) Pelvic pain: Status: Acute (3) UTI (urinary tract infection): Status: Acute Plan Given the elevated white count and elevated CRP, and the finding of a cystic pelvic mass, I think we have to err on the side of caution and admit the patient for IV antibiotic therapy for possible tubo-ovarian abscess. It is also possible that the cystic mass is merely a hemorrhagic cyst and that the bacterial infection is in the bladder. Either way, the antibiotic therapy should be effective. We will plan ceftriaxone 1 g Q 24 hours, doxycycline 100 mg q.12 hours, and metronidazole 500 mg Q 8 hours. Will continue Toradol as needed for pain overnight, and Zofran as needed for nausea. Plan to recheck the CBC with differential and CRP in the morning. The patient is agreeable with the plan. Total Time Spent Total Time Spent: 40 minutes
[2024-11-20] MEDS: DOXYCYCLINE HYCLATE 100 MG in 0.9 % SODIUM CHLORIDE Mini-bag 100 ML IVPB (22:55)
[2024-11-20] MEDS: cefTRIAXone 1 GM in 0.9 % SODIUM CHLORIDE Mini-bag 100 ML IVPB (23:17)
[2024-11-20] MEDS: ACETAMINOPHEN 500 MG TABLET 1000 MG PO (23:44)
[2024-11-20] MEDS: SODIUM CHLORIDE 0.9 % (FLUSH) 10 ML SYRINGE 5 ML IVF (23:46)
[2024-11-21 03:00] VITALS: RESP 16
[2024-11-21] MEDS: metroNIDAZOLE 500 MG/100 ML PIGGYBACK 100 MG IVPB ×3 (05:34→21:16)
[2024-11-21] MEDS: SODIUM CHLORIDE 0.9 % (FLUSH) 10 ML SYRINGE 5 ML IVF ×3 (05:35→21:18)
--- NOTE | 2024-11-21 05:59 | PC.NURSE ---
Pt slept well during night, pain controlled with prn pain medication, tylenol and toradol. tolerating antibiotics, no N/V, tolerating PO intake. pain to lower abdomen, occasionally by belly button and radiating to lower back, aqua k pad to site per pt discretion.
[2024-11-21 06:58] LABS: Basophils Absolute Auto 0.03 K/uL (0.00-0.30); Basophils Percent Auto 0.3 % (0.0-3.0); Eosinophils Absolute Auto 0.22 K/uL (0.00-0.50); Eosinophils Percent Auto 2.3 % (0.0-7.0); Hematocrit 34.9 % (33.0-51.0); Hemoglobin* 11.4 gm/dL (12.0-16.0); Immature Granulocytes Abs Auto 0.02 K/uL (0.00-0.30); Immature Granulocytes Pct Auto 0.2 %; Lymphocytes Percent Auto 24.8 % (20-44); Mean Corpuscular HGB Conc 33 gm/dL (32-36); Mean Corpuscular Hemoglobin 31 pg (26-34); Mean Corpuscular Volume 94 fL (80-100); Monocytes Percent Auto 8.8 % (0.0-11.0); Neutrophils Absolute Auto 6.16 K/uL (1.7-7.0); Neutrophils Percent Auto 63.6 % (42.0-72.0); Platelet Count* 401 K/uL (140-440); RDW Coefficient of Variation % 11.7 % (11.5-15.5); Red Blood Count 3.71 m/uL (4.00-5.20); White Blood Count* 9.68 K/uL (4.50-11.00)
[2024-11-21 07:00] VITALS: BP 131/86; PULSE 83; RESP 14; O2SAT 99
[2024-11-21 07:09] LABS: Slide Review Reflex No
[2024-11-21 07:16] LABS: C Reactive Protein* 8.3 mg/dL (0.5-1.0)
[2024-11-21] MEDS: KETOROLAC 15 MG/ML inj IVP ×2 (07:56→13:31)
[2024-11-21] MEDS: ACETAMINOPHEN 500 MG TABLET 1000 MG PO ×2 (07:56→13:30)
--- NOTE | 2024-11-21 08:44 | PM.GYNPNNOR ---
Progress Note: A&P Assessment and plan (1) TOA (tubo-ovarian abscess): Status: Acute Plan 29 y/o admitted for IV antibiotic therapy due to suspected left TOA: 1. Responding clinically to current antibiotic regimen (Ceftriaxone 1g q 24hrs, Doxycycline 100mg q 12hrs, Metronidazole 500mg q 8hrs)- will continue to complete at least 24 hours (tonight at around 9pm). If there is concern during the day for worsening pelvic pain, fever etc... then would consider antibiotic regimen change or need for transfer for possible IR, but for the moment patient is responding well. Will repeat labs again tomorrow am. 2. Continue NSAIDs for pain management. 3. Reviewed possible discharge home tomorrow to complete 14 days of oral antibiotic therapy and coordinate clinic follow up and make a plan to repeat imaging etc... 4. Bood pressures initially very elevated-but noted that they were utilizing a regular cuff and she needed a larger one. This was changed this morning. YOUTH CARE WORKER- PN:Subj Non-OR Subjective Date Seen: 11/21/24 Interval history: 29 y/o admitted for IV antibiotics due to concerns for left TOA. Today patient states to be doing well. Was able to sleep last night and pain has been manageable, currently 08/14. Remained afebrile. Eating w/o nausea or vomiting. Has not ambulated much because she was tired, but plans to do so today. Lab work repeated this morning show white blood cell count improvement from 12.5-9.6 as well as improvement of CRP from 12.6 to 8.3. YOUTH CARE WORKER-PN: Obj Exam Physical Exam: Vital signs: Temp Pulse Resp BP Pulse Ox O2 Del Method 97.4 F L 83 14 131/86 99 Room Air 11/20/24 16:41 11/21/24 07:00 11/21/24 07:00 11/21/24 07:00 11/21/24 07:00 11/21/24 07:00 Narrative: VITAL SIGNS: As noted above. GENERAL APPEARANCE: Alert, cooperative [white] female in no acute distress. MOOD & AFFECT: Normal. ABDOMEN: Positive bowel sounds. Soft, non-distended and slightly tender to deep palpation in the midline pelvic region. No guarding, no rebound. EXTREMITIES: Nonedematous. Well perfused. Nontender. YOUTH CARE WORKER - PN: Obj Data Labs Labs: Laboratory Results - last 24 hr 11/20/24 11/20/24 11/20/24 17:20 19:35 Unknown WBC 12.53 H RBC 4.01 Hgb 12.2 Hct 37.6 MCV 94 MCH 30 MCHC 32 RDW Coeff of Paty 11.7 Plt Count 442 H Neut % (Auto) 73.1 H Lymph % (Auto) 19.1 L [place] % (Auto) 6.8 Eos % (Auto) 0.6 Baso % (Auto) 0.2 Neut # (Auto) 9.20 H Lymph # (Auto) 2.40 [place] # (Auto) 0.90 Eos # (Auto) 0.10 Baso # (Auto) 0.00 Abs Immat Gran (auto) 0.00 Imm/Tot Granulo (auto) 0.2 Sodium 142 Potassium 3.7 Chloride 106 Carbon Dioxide 27 Anion Gap 9 BUN 9 Creatinine 0.7 Estimated Creat Clear 95.48 Estimated GFR 121 Glucose 95 Lactate 1.2 Calcium 9.6 Total Bilirubin 0.7 AST 19 ALT 19 Alkaline Phosphatase 73 C-Reactive Protein 12.6 H Total Protein 7.8 Albumin 4.4 Urine Color Yellow Urine Appearance Clear Urine pH 6.0 Ur Specific [place] 1.020 Urine Protein 1+ A Urine Glucose (UA) Negative Urine Ketones 2+ A Urine Blood Trace-intact A Urine Nitrite Negative Urine Bilirubin Negative Urine Urobilinogen 1.0 Ur Leukocyte Esterase 2+ A Urine RBC 2-5 A Urine WBC 10-25 A Ur Squamous Epith Cells Few Urine Bacteria Few A Urine HCG, Qual Negative C.trachomatis Ampl DNA NOT DETECTED N.gonorrhoeae Ampl DNA NOT DETECTED 11/21/24 06:40 WBC 9.68 RBC 3.71 L Hgb 11.4 L Hct 34.9 MCV 94 MCH 31 MCHC 33 RDW Coeff of Paty 11.7 Plt Count 401 Neut % (Auto) 63.6 Lymph % (Auto) 24.8 [place] % (Auto) 8.8 Eos % (Auto) 2.3 Baso % (Auto) 0.3 Neut # (Auto) 6.16 Lymph # (Auto) 2.40 [place] # (Auto) 0.90 Eos # (Auto) 0.22 Baso # (Auto) 0.03 Abs Immat Gran (auto) 0.02 Imm/Tot Granulo (auto) 0.2 Sodium Potassium Chloride Carbon Dioxide Anion Gap BUN Creatinine Estimated Creat Clear Estimated GFR Glucose Lactate Calcium Total Bilirubin AST ALT Alkaline Phosphatase C-Reactive Protein 8.3 H Total Protein Albumin Urine Color Urine Appearance Urine pH Ur Specific [place] Urine Protein Urine Glucose (UA) Urine Ketones Urine Blood Urine Nitrite Urine Bilirubin Urine Urobilinogen Ur Leukocyte Esterase Urine RBC Urine WBC Ur Squamous Epith Cells Urine Bacteria Urine HCG, Qual C.trachomatis Ampl DNA N.gonorrhoeae Ampl DNA
[2024-11-21] MEDS: DOXYCYCLINE HYCLATE 100 MG in 0.9 % SODIUM CHLORIDE Mini-bag 100 ML 200 MG IVPB ×2 (09:25→22:21)
[2024-11-21] MEDS: 0.9 % SODIUM CHLORIDE 250 ml IV (10:00)
[2024-11-21 10:04] VITALS: BP 127/85; PULSE 86; RESP 15; TEMP 36.8; O2SAT 96
[2024-11-21 15:00] VITALS: BP 131/76; PULSE 92; RESP 18; TEMP 36.8; O2SAT 97
--- NOTE | 2024-11-21 15:41 | PC.NURSE ---
Patient ambulates independently. Patient managing pain with prn medications and heat. Patients IV patent and tolerating regular diet.
[2024-11-21 21:12] VITALS: BP 138/99; PULSE 91; RESP 16; O2SAT 99
[2024-11-21] MEDS: ONDANSETRON 2 MG/ML inj 4 MG IVP (21:17)
[2024-11-21] MEDS: NON-FORMULARY MEDICATION (Naltrexone-Bupropion [Contrave] 8-90 mg tablet extended release) 1 EACH PO (22:08)
[2024-11-21 23:00] VITALS: BP 116/73; PULSE 96; RESP 16; TEMP 36.8; O2SAT 96
[2024-11-21] MEDS: cefTRIAXone 1 GM in 0.9 % SODIUM CHLORIDE Mini-bag 100 ML IVPB (23:19)
[2024-11-22 03:00] VITALS: BP 132/79; PULSE 93; RESP 16; TEMP 36.6; O2SAT 93
[2024-11-22] MEDS: metroNIDAZOLE 500 MG/100 ML PIGGYBACK 100 MG IVPB (05:06)
--- NOTE | 2024-11-22 06:09 | PC.NURSE ---
End of shift report [id number]: VSS. Afebrile. Pt rates pain from a 3-2/10, pt denies prn pain meds at this time, pt is utilizing heat with relief. Pt denies nausea. Pt is independent in room. Pts is at the bedside, call light within reach.?
[2024-11-22 06:39] LABS: Basophils Absolute Auto 0.03 K/uL (0.00-0.30); Basophils Percent Auto 0.3 % (0.0-3.0); Eosinophils Absolute Auto 0.19 K/uL (0.00-0.50); Eosinophils Percent Auto 1.8 % (0.0-7.0); Hematocrit 35.9 % (33.0-51.0); Hemoglobin* 11.8 gm/dL (12.0-16.0); Immature Granulocytes Abs Auto 0.01 K/uL (0.00-0.30); Immature Granulocytes Pct Auto 0.1 %; Mean Corpuscular HGB Conc 33 gm/dL (32-36); Mean Corpuscular Hemoglobin 31 pg (26-34); Mean Corpuscular Volume 93 fL (80-100); Monocytes Percent Auto 6.7 % (0.0-11.0); Neutrophils Percent Auto 78.1 % (42.0-72.0); Platelet Count* 425 K/uL (140-440); RDW Coefficient of Variation % 11.9 % (11.5-15.5); Red Blood Count 3.85 m/uL (4.00-5.20); White Blood Count* 10.74 K/uL (4.50-11.00)
[2024-11-22 06:52] LABS: Slide Review Reflex No
[2024-11-22 07:05] LABS: C Reactive Protein* 6.1 mg/dL (0.5-1.0)
--- NOTE | 2024-11-22 07:27 | PM.GYNDS1 ---
DS: Providers Provider Time Seen by Provider: 10:33 Date Seen: 11/22/24 Date of admission: 11/20/24 22:01 Primary care physician: Not a Local Provider Admitting Clinician: Lillie Collado MD Attending Physician on discharge: Pavan Ramirez MD VEHICLE BODY MAKER-Discharge Summary Hospital Course Hospital Course Narrative: Patient is a 29 year old admitted on 11/20/24 for suspected tubo-ovarian abscess. Patient presented with low abdominal pain and subjective section symptoms of fever, where CT of the abdomen and pelvis then pelvic ultrasound demonstrated a complex left adnexal process. Differential included tubo-ovarian abscess versus hemorrhagic cyst, where there was suspicion for infection given evidence of leukocytosis, left shift, elevated CRP and tachycardia. She was admitted to the hospital and started on IV ceftriaxone, doxycycline and Flagyl. She has received about 36 hours of IV therapy. Daily labs have demonstrated resolution of her leukocytosis, interval decrease in CRP. Clinically, she until notes her pain is significantly improved through time. Pain is managed with ibuprofen and Tylenol. She is tolerating p.o. liquids and solids without difficulty. Last had intermittent nausea without vomiting overnight, resolved with Zofran. She denies any subjective fevers or chills, and has been afebrile since admission. Denies any abnormal vaginal discharge or malodor. Gonorrhea/chlamydia testing in the emergency department subsequent returned as negative. Urine culture demonstrated greater than 100 K CFUs of mixed rosalina suggesting contamination. In total, she until his demonstrated clinical improvement her hospitalization. Her pain is significantly improved, nausea is improved (tolerable on Zofran) and she has had resolution of her former subjective fever symptoms. Given clinical improvement, plan to dismiss from the hospital today. I would recommend a total of 14 day course of antibiotics for suspected PID with TOA, where she received ceftriaxone x2 and now we will just continue doxycycline and Flagyl orally for a total of 14 days. Recommend outpatient follow-up in the next 1-2 weeks (prior to coming off antibiotics) to ensure she continues to be clinically well. I would also recommend a repeat pelvic ultrasound in 6 weeks time to ensure resolution of this mass. Strict return precautions reinforced for worsening pain, nausea/vomiting, fever/chills, malodorous or abnormal vaginal discharge. Patient expressed understanding and is agreeable to plan. Time Spent with Patient Time attestation: Total time spent providing and/or coordinating discharge services: Time spent: Less than 30 minutes VEHICLE BODY MAKER - Exam Physical Exam: Vital signs: Temp Pulse Resp BP Pulse Ox O2 Del Method 97.8 F 93 16 132/79 93 Room Air 11/22/24 03:00 11/22/24 03:00 11/22/24 03:00 11/22/24 03:00 11/22/24 03:00 11/22/24 03:00 Narrative: General: Alert and oriented, no acute distress Psych: Appropriate mood and affect Abdomen: Soft, nondistended. Nontender to palpation, aside from mild tenderness noted when I palpate deep in the suprapubic to RLQ region. No rebound or guarding. Patient notes this is significantly improved from her previous exams. VEHICLE BODY MAKER - DS: Data Data Completed and Pending Labs on day of discharge: Labs from last 24 hours 11/22/24 06:27 WBC 10.74 RBC 3.85 L Hgb 11.8 L Hct 35.9 MCV 93 MCH 31 MCHC 33 RDW Coeff of Paty 11.9 Plt Count 425 Neut % (Auto) 78.1 H Lymph % (Auto) 13.0 L [place] % (Auto) 6.7 Eos % (Auto) 1.8 Baso % (Auto) 0.3 Neut # (Auto) 8.40 H Lymph # (Auto) 1.40 [place] # (Auto) 0.70 Eos # (Auto) 0.19 Baso # (Auto) 0.03 Abs Immat Gran (auto) 0.01 Imm/Tot Granulo (auto) 0.1 C-Reactive Protein 6.1 H Preliminary micro results at discharge 11/20/24 Unknown Urine Culture - Preliminary Urine,Clean Catch > 100,000 COL/ML MIXED GRAM POSITIVE ROSALINA ISOLATED NO FURTHER WORKUP Discharge Plan Discharge Disposition: Home, Self-Care Date of Admission: 11/20/24 22:01 Primary Care Provider: Provider,Not a Local Condition: Improved Anticipated Discharge Date/Time: 11/22/24 10:41 Discharge Medications: New doxycycline hyclate 100 mg tablet 100 mg PO BID 12 Days Qty: 24 0RF metronidazole 500 mg tablet 500 mg PO BID 12 Days Qty: 24 0RF Continued Contrave 8-90 mg tablet extended release 1 tab PO BID Discharge Orders: Discharge Order (Routine); Ordered 11/22/24 Ordered By: Chloé R James Additional Instructions: Please call clinic/presented care with worsening pelvic pain, nausea/vomiting, fever/chills, malodorous or abnormal vaginal discharge. Recommend pelvic rest x2 weeks. Recommend follow-up in the clinic in the next 1-2 weeks. Activity Level: Activity as Tolerated Discharge Diet: Regular Follow Up Appointments: Provider,Not a Local [Primary Care Provider, Family Practice] Forms: [employer] Info Instructions
[2024-11-22 08:55] VITALS: BP 122/90; PULSE 81; RESP 16; TEMP 36.8; O2SAT 95
[2024-11-22] MEDS: DOXYCYCLINE HYCLATE 100 MG in 0.9 % SODIUM CHLORIDE Mini-bag 100 ML IVPB (10:31)
[2024-11-22] MEDS: 0.9 % SODIUM CHLORIDE 250 ml IV (10:32)
[2024-11-22] MEDS: SODIUM CHLORIDE 0.9 % (FLUSH) 10 ML SYRINGE 5 ML IVF (10:32)
== END 2024-11-22 11:19 | disposition home or self-care (01) | DRG 758 ==
LOC: ED 19:55 → MEDSURG 21:57
PROVIDERS: Family Medicine; Obstetrics & Gynecology; Admitting Provider Obstetrics & Gynecology; Emergency Provider Family Medicine; Visit Provider Obstetrics & Gynecology
DX: N70.03 Acute salpingitis and oophoritis (principal); N39.0 Urinary tract infection, site not specified; B96.89 Other specified bacterial agents as the cause of diseases classified elsewhere; N83.202 Unspecified ovarian cyst, left side; R10.2 Pelvic and perineal pain; E66.812 Obesity, class 2; Z68.38 Body mass index [BMI] 38.0-38.9, adult
CPT/HCPCS: 36415; 74177; 76830; 80053; 81001; 81025; 83605; 85025; 86140; 87086; 87491; 87591; 93005; 94761; 99284; 99285; A9270; J0696; J1836; J1885; J2405; J7050; Q9967

== ENCOUNTER 2024-11-30 08:20 | Outpatient (CLI) | payer OTHER, SELFPAY | END 2024-11-30 08:21 | disposition home or self-care (01) | LOC: NFLDREF 12-03 12:54 | PROVIDERS: Visit Provider Physician Assistant | DX: N39.0 Urinary tract infection, site not specified (principal) | CPT/HCPCS: 87086 ==

== ENCOUNTER 2024-12-18 15:44 | Outpatient (CLI) | payer OTHER, SELFPAY ==
--- NOTE | 2024-12-18 16:00 | CRLHL7_ITS ---
For Patients: As a result of the Century Cures Act, medical imaging exams and procedure reports are released immediately into your electronic medical record. You may view this report before your referring provider. If you have questions, please contact your health care provider. CLINICAL HISTORY: Left sided pelvic pain and adnexal mass on recent imaging COMPARISON: Ultrasound and CT 11/20/2024 TECHNIQUE: 2D luu-scale ultrasound. In addition, color Doppler and spectral Doppler analysis was performed of the pelvis using a transabdominal and transvaginal approach. Transvaginal imaging performed to better visualize the endometrial stripe and ovaries. FINDINGS: Uterus measures 9.1 x 4.1 x 4.3 cm. The endometrial lining appears normal and measures 7.3 mm in thickness. The right ovary measures 3.3 x 2.1 x 2.2 cm in size and the left ovary measures 6.6 x 6.0 x 6.1 cm. The ovaries demonstrate normal arterial and venous blood flow on color Doppler and spectral Doppler analysis. Complex left ovarian cystic lesion is present which measures 6.1 x 5.3 x 4.8 cm. Hypoechoic internal echoes are present in the majority of the lesion along with a small area of anechoic fluid. Septations are present which measure up to approximately 3.2 millimeters. No papillary projection. Slight blood flow within 1 of the septations may be present. IMPRESSION: Complex left ovarian cyst measures 6.1 x 5.3 x 4.8 cm. Somewhat thickened internal septations are present with mild internal color Doppler flow regarding 1 of the septations. Pelvic MRI recommended for further evaluation. Dictated by Vishnu Cheung MD @ 12/19/2024 5:39:11 AM (Electronically Signed)
== END 2024-12-18 15:45 | disposition home or self-care (01) ==
LOC: US 15:44
PROVIDERS: Visit Provider Obstetrics & Gynecology
DX: R10.2 Pelvic and perineal pain (principal); N83.202 Unspecified ovarian cyst, left side; N94.9 Unspecified condition associated with female genital organs and menstrual cycle
CPT/HCPCS: 76830; 76856; 93976

== ENCOUNTER 2025-01-18 09:15 | Outpatient (CLI) | payer OTHER, SELFPAY | END 2025-01-18 09:16 | disposition home or self-care (01) | LOC: NFLDREF 01-20 08:14 | PROVIDERS: Visit Provider Obstetrics & Gynecology | DX: N94.89 Other specified conditions associated with female genital organs and menstrual cycle (principal); N70.93 Salpingitis and oophoritis, unspecified | CPT/HCPCS: 82105; 83615; 84702; 86304 ==

== ENCOUNTER 2025-01-25 09:05 | Outpatient (CLI) | payer OTHER, SELFPAY ==
--- NOTE | 2025-01-25 09:15 | CRLHL7_ITS ---
For Patients: As a result of the Century Cures Act, medical imaging exams and procedure reports are released immediately into your electronic medical record. You may view this report before your referring provider. If you have questions, please contact your health care provider. CLINICAL HISTORY: Follow-up left ovarian cyst Comparison: Ultrasound 12/18/2024, 11/20/2024 CT 11/20/2024 TECHNIQUE: Real time, luu scale images were acquired of the pelvis using a transabdominal and transvaginal approach. Color Doppler analysis was performed of the ovaries. FINDINGS: The uterus appears unremarkable and measures 9.2 x 4.3 x 5.3 centimeters. The endometrium measures 1 cm. Right ovary measures 4.2 x 2.6 x 2.9 centimeters. Complex right ovarian cyst measuring 2.3 centimeters. Left ovary measures 7 x 5.4 x 6.4 centimeters. Again seen is a complex left ovarian cyst with wall irregularity there may be some soft tissue components present. Internal echoes. Septations are present. This likely is not significantly changed given variations in measurement technique. Normal blood flow to both ovaries. IMPRESSION: 1. Similar complex left ovarian cyst measuring 6.3 x 4.9 x 5.6 centimeters probably not significantly changed in size with wall irregularity possible soft tissue components septations and internal echoes. Benign and malignant etiologies can not be excluded. Gynecology assessment is recommended MRI could be obtained as well. 2. Complex right ovarian cyst could be related to corpus luteum cyst in which follow-up ultrasound in 8-12 weeks is recommended. Dictated by Norma Kirk MD @ 01/29/2025 2:43:47 PM (Electronically Signed)
== END 2025-01-25 09:06 | disposition home or self-care (01) ==
LOC: US 09:05
PROVIDERS: Visit Provider Obstetrics & Gynecology
DX: N83.202 Unspecified ovarian cyst, left side (principal); N83.201 Unspecified ovarian cyst, right side; N94.89 Other specified conditions associated with female genital organs and menstrual cycle
CPT/HCPCS: 76830; 76856

== ENCOUNTER 2025-02-08 09:00 | Outpatient (CLI) | payer OTHER, SELFPAY ==
--- NOTE | 2025-02-08 09:15 | CRLHL7_ITS ---
For Patients: As a result of the Century Cures Act, medical imaging exams and procedure reports are released immediately into your electronic medical record. You may view this report before your referring provider. If you have questions, please contact your health care provider. INDICATION: Cystic mass in the left pelvis; possible dermoid. COMPARISON: Pelvic ultrasound November 20, 2024, December 18, 2024 and January 25, 2025; CT abdomen and pelvis with intravenous contrast November 20, 2024. TECHNIQUE: MRI of the pelvis without and with intravenous contrast; precontrast T1 and T2 weighted imaging; T2 haste imaging; diffusion-weighted imaging; in- and out of phase imaging; postcontrast imaging including subtraction; 20 cc of Dotarem contrast was injected IV. FINDINGS: A 5.4 cm complex/hemorrhagic mass identified involving the left adnexa without enhancement postcontrast administration. Right ovary is unremarkable. Multiple follicles identified within the right ovary. The uterus is normal. No free fluid identified in the pelvic cul-de-sac. No abnormal pelvic lymphadenopathy. No fat present within the left adnexal mass. Septations and thick wall identified. IMPRESSION: A 5.4 cm complex septated thick-walled nonenhancing mass left adnexa; rule out endometrioma. Dictated by Elba Jones MD @ 02/09/2025 2:37:45 PM (Electronically Signed)
== END 2025-02-08 09:01 | disposition home or self-care (01) ==
LOC: MRI 09:01
PROVIDERS: Visit Provider Obstetrics & Gynecology
DX: N94.89 Other specified conditions associated with female genital organs and menstrual cycle (principal); R19.00 Intra-abdominal and pelvic swelling, mass and lump, unspecified site
CPT/HCPCS: 72197; A9575

== ENCOUNTER 2025-02-20 07:59 | Day surgery (SDC) | payer OTHER, SELFPAY ==
[2025-02-20] VITALS (13 sets, daily range): BP systolic 110–130; BP diastolic 55–95; PULSE 64–109; RESP 9–20; TEMP 36–36.7; O2SAT 93–98; BMI 39.9
[2025-02-20] MEDS: LACTATED RINGERS 1000 ML 1,000 ML 100 ML IV ×2 (08:05→11:41)
[2025-02-20] MEDS: SODIUM CHLORIDE 0.9 % (FLUSH) 10 ML SYRINGE IVF (08:28)
[2025-02-20 08:31] LABS: Ur HCG Qualitative* Negative (Negative)
[2025-02-20 08:41] LABS: Hemoglobin* 14.0 gm/dL (12.0-16.0)
--- NOTE | 2025-02-20 09:20 | P.ANES_ITS ---
Anesthesia Charges Start Date/Time Anesthesia Start Date: 02/20/25 Anesthesia Start Time: 09:41 Stop Date/Time Anesthesia Stop Date: 02/20/25 Anesthesia Stop Time: 12:37 Coding CPT Codes CPT Codes: ANESTH SURG LOWER ABDOMEN - 19436 ([id number]) P3 - PATIENT W/SEVERE SYS DISEASE, QK - HYDROELECTRIC MECHANIC 2-4 CNCRNT ANES PROC, QX - ASSISTANT DIRECTOR OF RESIDENCE LIFE SVC W/ MD MED DIRECTION
--- NOTE | 2025-02-20 09:20 | W.ANESCHARGE ---
Anesthesia Charges Start Date/Time Anesthesia Start Date: 02/20/25 Anesthesia Start Time: 09:41 Stop Date/Time Anesthesia Stop Date: 02/20/25 Anesthesia Stop Time: 12:37 Coding CPT Codes CPT Codes: ANESTH SURG LOWER ABDOMEN - 89135 ([id number]) P3 - PATIENT W/SEVERE SYS DISEASE, QK - ASSISTANT THERAPY AIDE 2-4 CNCRNT ANES PROC, QX - MIG TIG WELDER SVC W/ MD MED DIRECTION
--- NOTE | 2025-02-20 09:55 | W.PM.H&PU ---
History & Physical Update History & Physical Update H&P Reviewed and patient assessed: No changes noted
[2025-02-20] MEDS: BUPIVACAINE 0.5 %/EPI 1:200K 20 ML INJECTION (10:29)
--- NOTE | 2025-02-20 10:52 | SUR.OPER ---
PATIENT QUESTIONS ANSWERED SATISFACTORILY PREOPERATIVELY. PATIENT BROUGHT TO OR #1 PER CART. Patient positioned supine on OR #1 bed for the intubation. Pt. then moved into the lithotomy position for the procedure. Perioperative team/Amanuel padded and tucked the arms at pt. sides in a neutral position. ? Final approval of positioning by surgeon.
--- NOTE | 2025-02-20 11:49 | PM.GSPRC ---
Operative Note Date of procedure: 02/20/25 Type of Procedure: 1. Intraoperative consultation for Laparoscopic lysis of adhesions. Procedure Description: Patient was undergoing laparoscopy for endometriosis by OBGYN service. Patient's sigmoid colon was noted to be adherent to the uterus and intraoperative consultation was requested from general surgery to aid with lysis of adhesions. When I entered the room, patient was already intubated and laparoscopic ports were already placed. Patient was in Trendelenburg position. The sigmoid colon was visualized and the distal sigmoid colon on the left side was adherent to the uterus and lateral abdominal wall. These adhesions were dense and most likely related to endometriosis. These adhesions were lysed with laparoscopic Metzenbaum scissors staying close to the uterus to avoid injury to the sigmoid colon. When the sigmoid colon was free, it was examined closely. The endometriosis was located at the mesenteric border on the left. No evidence of colotomy was noted. There was no bleeding from this mobilized segment. There is no evidence of diverticulosis. At this time I exited the room and OBGYN service proceeded with the rest of the procedure. Anesthesia: GETA Surgeon: Zoila Murphy MD Estimated blood loss (mL): 0 Disposition: no change
--- NOTE | 2025-02-20 12:44 | P.ANES_ITS ---
Anesthesia Charges Start Date/Time Anesthesia Start Date: 02/20/25 Anesthesia Start Time: 09:41 Stop Date/Time Anesthesia Stop Date: 02/20/25 Anesthesia Stop Time: 12:37 Coding CPT Codes CPT Codes: ANESTH SURG LOWER ABDOMEN - 95663 ([id number]) P3 - PATIENT W/SEVERE SYS DISEASE, QK - AVIATION OPERATIONS SPECIALIST 2-4 CNCRNT ANES PROC, QX - SEO TEAM LEAD SVC W/ MD MED DIRECTION
--- NOTE | 2025-02-20 12:44 | W.ANESCHARGE ---
Anesthesia Charges Start Date/Time Anesthesia Start Date: 02/20/25 Anesthesia Start Time: 09:41 Stop Date/Time Anesthesia Stop Date: 02/20/25 Anesthesia Stop Time: 12:37 Coding CPT Codes CPT Codes: ANESTH SURG LOWER ABDOMEN - 01981 ([id number]) P3 - PATIENT W/SEVERE SYS DISEASE, QK - FISH NET STRINGER 2-4 CNCRNT ANES PROC, QX - ALLEY CLEANER SVC W/ MD MED DIRECTION
[2025-02-20] MEDS: PIPERACILLIN/TAZOBACTAM 3.375 GM in 0.9 % SODIUM CHLORIDE Mini-bag 100 ML IVPB (13:04)
--- NOTE | 2025-02-20 13:17 | P.PCNOB_ITS ---
Procedure Pre-op/Post-op diagnoses: Pre-Op/Post-Op Diagnoses Operation Date: 02/20/25 09:30 <No data on this case meets the specified criteria> Procedure: Procedures Operation Date: 02/20/25 09:30 Actual Procedure Side Surgeon p PELVIC WASHINGS, Laparoscopic LEFT Ovarian Cystectomy, LYSIS OF ADHESIONS Left Salome Martínez MD Rn Document Improvement Specialist: Maggie Mayo Estimated blood loss (mL): 25 Anesthesia Type: General and Local Complications: none Specimen: washings and other (Ovarian endometrioma ) Narrative: PreOp Dx: Chronic Pelvic Pain, Left complex ovarian cyst, likely endometrioma. PostOp Dx: Endometriosis, left endometrioma, adhesive disease of left ovary and left sigmoid colon to posterior cul-de-sac of the uterus. Operative Findings: Exam under anesthesia: Pelvic exam: Mons normal, clitoris normal, urethral meatus normal. Labia minora and majora normal in appearance bilaterally. Perineum and anus normal appearance. Vaginal introitus normal appearance. Vaginal pink and well rugated with scant white discharge. Cervix pink and without lesion. Bimanual exam limited due to habitus but cervix was mobile and not obvious fixation of the uterus. Unable to assess adnexa on bimanual exam. On laparoscopy: 5-6 cm left ovarian endometrioma partially adhered to posterior uterus and epiploica of the sigmoid colon. Distal Sigmoid colon was noted to be adherent to uterus and lateral abdominal wall on the left side. Additionally, it was in close proximity to the left ovarian endometrioma. Small physiologic, simple cyst noted on right ovary. Normal fallopian tubes bilaterally. Uterus with adhesions of left ovary and distal sigmoid colon to posterior cul-de-sac but otherwise, contour appears normal. Normal liver, appendix not visualized. UOP: 300 cc, clear Specimens: Pelvic washing for cytology and left ovarian endometrioma. Complications: None Clinical Note: Ms. Seo is a 29 year old female who presented with 5-6 cm complex left ovarian cyst and long standing pelvic pain, likely endometrioma and endometriosis. Gabbi was taken to the operating room where general anesthetic was found to be adequate. She was placed in the dorsal lithotomy position and an exam under anesthesia was performed with findings stated above. She was then prepped and draped in a normal sterile manner. A Bladder was drained and Camilo catheter was placed. Sponges was placed intravaginally to act as uterine manipulator. A ttention was then turned to performing the laparoscopic portion of the procedure. All incisions were infiltrated with 0.5% Bupivacaine with epinephrine prior to incising the skin. A vertical, infraumbilical 5 mm incision was made. A 5 mm trocar was then placed under direct visualization. The abdomen was then insufflated with CO2 gas to a pressure of 15 mm of mercury. The patient was then placed in steep Trendelenburg. Two pelvic ports were then placed approximately 3-4 finger breaths medial to the ischial crests. The trocar in the RLQ = 5mm, LLq = 11mm. These were placed under direct visualization. A 4th port was made in the patient's left lower quadrant, just superior medial to the left ASIS. A 5 mm Fios Kii port was inserted under direct visualization and without complication. The balloon on each of the 4 ports was inflated, holding each in place. Examination of the peritoneal cavity revealed no signs of injury from entry. Attention was then turned to performing the diagnostic laparoscopy. Peritoneal washing was performed. Lysis of adhesions performed with blunt and sharp dissection to mobilize left ovary of of the posterior aspect of the uterus. During mobilization, ruptured of the ovarian cyst occurred and chocolate fluid expressed. Drainaged performed. Copious amount of irrigation performed (>3L). After ovarian cystectomy was completed, small amount of persistent bleeding noted to be coming from the part of the ovary most closely adjacent to sigmoid adhesion. Difficult to assess due to adhesion. General surgery consulted for lysis of adhesion and mobilization of sigmoid colon away from left ovary. See general surgery note for full details. Assist appreciated. After sufficient mobilization of sigmoid colon away from left ovary, the entirety of the left ovary could be assessed satisfactorily. Hemostasis achieved at the left ovarian cortex with electrocautery. Care taken to avoid thermal spread to adjacent structure by elevating the ovary towards the anterior abdominal wall and away from surrounding structures. Yudi placed. Excellent hemostasis was noted of all pedicles assessed at 5 mmHg of pressure. Fascia closed on the 11 port with Brad-Jez. The trocars were then removed under direct visualization. The CO2 gas was allowed to escape the infraumbilical port prior to its removal. All incisions were reapproximated using 4-0 Monocryl in a running subcuticular manner. Exofin was applied over each incision. The vaginal manipulator and Camilo catheter were removed. The patient tolerated this procedure well. Sponge, lap and instrument counts were correct x2 at the end of the procedure and the patient was taken to the recovery area in stable condition. Surgical debrief performed and specimen reviewed.
== END 2025-02-20 14:22 | disposition home or self-care (01) ==
LOC: OR 08:00
PROVIDERS: Visit Provider Obstetrics & Gynecology
PROC: (CPT 58662; principal; 2025-02-20 09:30)
DX: N80.122 Deep endometriosis of left ovary (principal); G89.29 Other chronic pain; R10.2 Pelvic and perineal pain; N73.6 Female pelvic peritoneal adhesions (postinfective); N83.291 Other ovarian cyst, right side; K57.30 Diverticulosis of large intestine without perforation or abscess without bleeding
CPT/HCPCS: 58662; 49329; 00840; 36415; 81025; 85018; 86850; 86900; 86901; 88112; 88305; A9270; J0330; J1100; J1171; J1885; J2250; J2405; J2543; J2704; J2710; J3010; J3490; J7120